=== PATIENT | female | born 1970 | race Caucasian/White ===

== ENCOUNTER 2024-11-18 21:25 | Emergency (ER) | payer BC ==
[~2024-11-18] VITALS: Ht 170.2 cm; Wt 57.2 kg
[2024-11-18] MEDS ORDERED: SILVER SULFADIAZINE 1% CREAM 50 GM TP ONE (21:44)
[2024-11-18] MEDS ORDERED: HYDR-3980 PO (21:45)
[2024-11-18] MEDS ORDERED: ONDA4TAB11 PO (21:45)
[2024-11-18] MEDS ORDERED: ONDANSETRON ODT 4 MG TAB.RAPDIS ONE ×2 (21:47→21:50)
[2024-11-18] MEDS ORDERED: HYDROCODONE/APAP 5-325MG TABLET ONE (21:48)
[2024-11-18] MEDS: HYDROCODONE/APAP 5-325MG TABLET PO ONE (21:57)
[2024-11-18] MEDS: ONDANSETRON ODT 4 MG TAB.RAPDIS SL ONE (21:57)
[2024-11-18] MEDS: SILVER SULFADIAZINE 1% CREAM 50 GM TP ONE (21:59)
[2024-11-18 22:09] VITALS: BP 120/83; TEMP 97.8; O2SAT 98
== END 2024-11-18 22:09 | disposition home or self-care (01) ==
LOC: ER 21:30
DX: T23.212A Burn of second degree of left thumb (nail), initial encounter (principal); Z88.7 Allergy status to serum and vaccine; X08.8XXA Exposure to other specified smoke, fire and flames, initial encounter; Y93.89 Activity, other specified; Y92.098 Other place in other non-institutional residence as the place of occurrence of the external cause; Y99.8 Other external cause status
CPT/HCPCS: 16020; A4606; A4663; Q0162